=== PATIENT | female | born 1990 ===

== ENCOUNTER 2018-10-30 10:55 | Emergency (ER) | payer BC ==
--- NOTE | 2018-10-30 16:01 | OBHP ---
Datetime: 10/30/2018 15:54 IP Adm Impression: Term, intrauterine ; No Active Labor IP Admit Plan: Observation/Evaluation; Discharge home Admit Comment, IP Provider: pt was mnitored in [place] and no cervical changes noted in over hrs and l ess pains D/C home with instrtuctions and will follow next wk in office Call immediatly if increased pains ROM bleeding or UC Understands and agreed Extremities - PN: Normal Abdomen - PN: Abnormal Back - PN: Normal Breast - PN: Not Done Lungs - PN: Normal Thyroid - PN: Not Done Neurologic - PN: Not Done HEENT - PN: Normal General - PN: Normal FHR - Baseline A Provider: 140/150 Membranes, Provider: Intact Contraction Comments Provider: irreg Comments, ACOG Physical Exam: Abd gravid NT fundus at term NT, ext no calf tenderness Pool Provider: Negative IP Hx Assessment: The History has been Reviewed and is Current EGA AdmitDate IP: 39.5 Vital Signs Provider: Reviewed IP Chief Complaint: Uterine contractions NICHD Variability Prov Fetus A: Moderate 6-25bpm NICHD Accel Fetus A IP Provider: [id number] NICHD Decel Fetus A IP Provider: None Dilatation, Provider: FT Effacement, Provider: none Station, Provider: h Genitourinary Exam: Normal DTRs - PN: Normal
[2018-10-30 21:05] VITALS: BP 125/78; PULSE 94; TEMP 98.1; O2SAT 98
== END 2018-10-30 16:00 | disposition home or self-care (01) ==
LOC: H.EROB2 10:55
DX: O26.93 Pregnancy related conditions, unspecified, third trimester (principal); R10.2 Pelvic and perineal pain; Z3A.39 39 weeks gestation of pregnancy

== ENCOUNTER 2018-11-05 10:18 | Inpatient (IN) | payer BC ==
[2018-11-05 10:35] VITALS: BMI 35.9
[2018-11-05] MEDS ORDERED: Lactated Ringer's 1,000 ML IV ONE (10:35)
[2018-11-05 11:15] LABS: BASO % 0.3 % (0.0-2.0); EOS # 0.1 K/uL (0.0-0.7); EOS % 1.1 % (0.0-4.0); HEMOGLOBIN 11.9 g/dL (12.0-16.0); LYMPH # 2.5 K/uL (1.0-4.3); LYMPH % 21.7 % (20.0-40.0); MEAN CORPUSCULAR HEMOGLOBIN 29.1 pg (27.0-31.0); MEAN CORPUSCULAR HGB CONC 32.7 g/dL (33.0-37.0); MEAN PLATELET VOLUME 9.4 fl (7.2-11.7); MONO # 0.6 K/uL (0.0-0.8); MONO % 5.3 % (0.0-10.0); NEUT # 8.2 K/uL (1.8-7.0); NEUT % 71.6 % (50.0-75.0); NRBC % 0.1 % (0.0-0.0); RBC 4.1 Mil/uL (3.80-5.20); RED CELL DISTRIBUTION WIDTH 15.7 % (11.5-14.5); WHITE BLOOD COUNT 11.4 K/uL (4.8-10.8)
[2018-11-05] MEDS: Lactated Ringer's 1,000 ML IV SCH (13:09)
[2018-11-05] MEDS ORDERED: Fentanyl/Bupivacaine HCl 250 ML EPI ONE (13:10)
[2018-11-06] MEDS ORDERED: cefOXitin IV 1 gm in Dextrose 1 GM/50 ML BAG IVPB ONE ×2 (10:32→10:37)
[2018-11-06] MEDS ORDERED: Oxytocin 30 UNIT 30 UNITS/500 ML BAG IV ONE (10:33)
[2018-11-06] MEDS ORDERED: OXYTOCIN/0.9 % NS 20 UNIT/1,000 ML BAG IV SCH (10:45)
[2018-11-06] MEDS ORDERED: Morphine 1 mg/ml preservative-free Inj(Duramorph) ONE (10:54)
[2018-11-06] MEDS: Lactated Ringer's 1,000 ML IV SCH (11:48)
[2018-11-06] MEDS ORDERED: Oxycodone/Acetaminophen 5/325 mg Tab PO PRN ×4 (12:08→17:23)
--- NOTE | 2018-11-06 12:10 | OBDS ---
DELIVERY PERSONNEL Delivery Doctor: Carmen Ann MD Batt Packer: Tracee Blake RN Anesthesiologist: DR SMILEY QUINTERO Resident: Dr Llanos OB FELLOW MATERNAL INFORMATION Delivery Anesthesia: Spinal Estimated Blood Loss (ml): 800 Maternal Complications: None Provider Comments: see dictated surgeons note LABOR SUMMARY EDC: 11/01/2018 00:00 No. Babies in Womb: 1 LABOR INFORMATION Reason for Induction: Postterm; Indicated by Testing Cervical Ripening Agents: Cervidil (Annotations: Inserted by Dr. Ann ) Oxytocin: N/A Group B Beta Strep: Negative Antibiotics # of Doses: 0 Antibiotics Time of Last Dose: 0 Steroids Given: None Reason Steroids Not Administered: Not Applicable MEMBRANES Membranes Rupture Method: Spontaneous Rupture of Membranes: 11/06/2018 03:30 Length of Rupture (hrs): 7.98 Amniotic Fluid Color: Clear Amniotic Fluid Amount: Large Amniotic Fluid Odor: Normal STAGES OF LABOR Stage 3 hrs: 0 Stage 3 min: 1 VAGINAL DELIVERY Episiotomy: None Laceration Extension: N/A Laceration Type: None Laceration Repair: Not Applicable Sponge Count Correct: Yes Sharps Count Correct: Yes Count Comment: count correct x3 CSECTION DELIVERY Primary Indication: Nonreassuring Status Secondary Indication: Failed Induction CSection Urgency: Elective CSection Incidence: Primary Labor: Labor Elective: Elective CSection Incision: Lower Uterine Transverse Uterine Closure: Double-layer closure BABY A INFORMATION Infant Delivery Date/Time: 11/06/2018 11:29 Method of Delivery: Born in Route : No : N/A Forceps: N/A Vacuum Extraction: Successful Shoulder Dystocia : No ASSISTED DELIVERY BABY A Catheter Prior to Procedure: Yes Vacuum Number of Pulls: 0 Vacuum Number of PopOffs: 1 SHOULDER DYSTOCIA BABY A Delivery Date/Time: 11/06/2018 11:29 PRESENTATION/POSITION BABY A Presentation: Cephalic Cephalic Presentation: Vertex Breech Presentation: N/A PLACENTA INFORMATION BABY A Placenta Delivery Time : 11/06/2018 11:30 Placenta Method of Delivery: Expressed Placenta Status: Delivered SCORES BABY A Heart Rate 1 min: >100 bpm Resp Effort 1 min: Good Cry Reflex Irritability 1 min: Cough or Sneeze or Pulls Away Muscle Tone 1 min: Active Motion Color 1 min: Body [place], Extremities Blue SCORE 1 MIN: 9 Heart Rate 5 min: >100 bpm Resp Effort 5 min: Good Cry Reflex Irritability 5 min: Cough or Sneeze or Pulls Away Muscle Tone 5 min: Active Motion Color 5 min: Body [place], Extremities Blue SCORE 5 MIN: 9 INFANT INFORMATION BABY A Gestational Age at Delivery: 40.5 Gestational Status: Term Outcome : Liveborn Infant Condition : Stable Sex: Male IDENTIFICATION/MEDS BABY A ID Band Number: [id number] ID Band Location: Left Leg; Left Arm WEIGHT/LENGTH BABY A Infant Birthweight (gms): 3730 Infant Weight (lb): 8 Weight (oz): 4 Length Inches: 20.00 Infant Length cms: 50.8 CORD INFORMATION BABY A No. Cord Vessels: 3 Nuchal Cord : N/A Nuchal Cord Other: 0 True Knot: 0 Cord Blood Taken: Yes Suction: Mouth; Nose
[2018-11-06] MEDS ORDERED: cefOXitin IV 1 gm in Dextrose 1 GM/50 ML BAG IVPB SCH (12:15)
[2018-11-06] MEDS ORDERED: DiphenhydrAMINE 50 mg/ml Inj IVP PRN ×2 (13:31→17:23)
[2018-11-06] MEDS ORDERED: Simethicone 80 mg Chewtab PO SCH (16:00)
[2018-11-06] MEDS ORDERED: cefOXitin Sodium 1 GM in Sodium Chloride 0.9% 100 ML IVPB SCH (19:00)
[2018-11-06] MEDS: cefOXitin IV 1 gm in Dextrose 1 GM/50 ML BAG IVPB SCH (19:07)
[2018-11-06] MEDS: Simethicone 80 mg Chewtab PO SCH (21:53)
[2018-11-07] MEDS: cefOXitin IV 1 gm in Dextrose 1 GM/50 ML BAG IVPB SCH ×2 (01:05→09:15)
[2018-11-07] MEDS: Simethicone 80 mg Chewtab PO SCH ×5 (03:17→21:00)
[2018-11-07 07:16] LABS: HEMOGLOBIN 10.3 g/dL (12.0-16.0); MEAN CELL VOLUME 87.5 fl (81.0-99.0); MEAN CORPUSCULAR HEMOGLOBIN 28.9 pg (27.0-31.0); RBC 3.56 Mil/uL (3.80-5.20); RED CELL DISTRIBUTION WIDTH 15.9 % (11.5-14.5); WHITE BLOOD COUNT 14.3 K/uL (4.8-10.8)
[2018-11-07] MEDS: Multivitamin With Minerals Tab PO SCH (08:10)
[2018-11-07] MEDS ORDERED: Multivitamin With Minerals Tab PO SCH (09:00)
[2018-11-07] MEDS ORDERED: Influenza Vaccine 60 mcg/0.5 mL SYR (4YR UP) IM ONE (12:38)
--- NOTE | 2018-11-07 12:55 | OBPPN ---
Datetime: 11/07/2018 12:50 PP Pain Prov: Within normal limits PP Pain Prov comment: No SOB, chest or leg pains PP Nausea Prov: Denies PP Flatus Prov: Yes PP BM Prov: No PP Nausea Prov comment: voided well PP Breasts Prov: Normal PP Lungs Prov: Normal PP Abdomen/Uterus Prov: Abnormal PP Lochia Prov: Normal PP Vulva/Perineum Prov: Normal PP CVA Tenderness Prov: Normal PP Extremities Prov: Normal PP C/S Incision Prov: Normal PP Progress Prov: Normal PP Comments Phys Exam Prov: breast nt, ne, breast feeding; Abd soft ND, fundus firm below the umb In cision clean and dry no suppt or discharge sutures in placel Ext no calf tenderness. PP Impression Prov: Normal progression PP Plan Prov: Continue present management PP Progress Note Prov: OOB and ambulation, increase diet as tolerated. Continue po care. Vital Signs Provider PP: Reviewed
--- NOTE | 2018-11-07 15:04 | OP ---
PROCEDURE DATE: 11/06/2018 PREOPERATIVE DIAGNOSES: 1. at 40 plus weeks gestation. 2. Nonreassuring tracing. 3. Failed induction. POSTOPERATIVE DIAGNOSES: 1. at 40 plus weeks gestation. 2. Nonreassuring tracing. 3. Failed induction. PROCEDURE PERFORMED: Primary low transverse segment section. SURGEON: Sameer Ann MD MECHANICAL OPERATOR: Harris Llanos MD TYPE OF ANESTHESIA: Spinal. ANESTHESIA ADMINISTERED BY: Severiano Saucedo MD ESTIMATED BLOOD LOSS: 800 mL. DRAINS USED: None. REPLACEMENT USED: None. FINDINGS: 1. Delivered living boy baby, baby appears large for gestational age. Baby cried spontaneously. Pediatrist in attendance. score of 9 and 9. 2. Amniotic fluid clear. 3. Placenta complete and intact. 4. Both tubes and ovaries appeared grossly within normal limits to inspection bilaterally. DESCRIPTION OF PROCEDURE: The patient was taken to the operating room and placed on the operating table in a supine position. Following the induction of spinal anesthesia, the Rubio catheter was inserted into the bladder and was draining clear fluid. Venodyne boots were applied to both legs and the abdomen was then draped and prepped in a usual sterile manner. Anesthesia tested and found to be well secured and a Pfannenstiel incision was then made using sharp dissection 2 fingerbreadths above the symphysis pubis. The incision was then extended down to subcutaneous tissue also using sharp dissection. At this time, we then proceeded to obtain hemostasis by means of electrocoagulation. The fascia was then identified, was then entered in the midline. Incision of the fascia was then extended laterally on each direction. Following this, the rectus muscle was then identified, was then slit in the midline exposing the peritoneum. Peritoneal layer was then picked up using 2 Claudia clamps, retracted superiorly and then entered using sharp dissection. Incision of the peritoneum was then extended superiorly and inferiorly under direct visualization. At this time, we then proceeded to identify the bladder, which was then retracted inferiorly using a Matthews retractor. The low transverse segment of the uterus was then identified, was then entered using sharp dissection. Using blunt dissection, a bladder flap was then created and retracted inferiorly using the same Matthews retractor. Following this, we then proceeded to make an incision in a low transverse segment of the uterus. Upon entering the uterine cavity, clear fluid noted to be present. The incision was then extended laterally in each direction using bandage scissors. Using amnioscopy procedure, a living baby boy was then delivered. The baby appears term, but large for gestational age. The baby cried spontaneously. It was aspirated using bulb suction, the umbilicus was then doubly clamped and cut, and the baby handled to the pediatric personnel who was standing by. Samples of cord blood were then obtained and the placenta was then delivered complete and intact. Edges of the uterine incision were then secured using multiple T-clamps. The uterus had been exteriorized to provide better visualization. The uterine cavity was then thoroughly cleaned using moist lap pad. The uterus was massaged and contracted well. The uterine incision was then approximated using 0 Vicryl suture in a continuous interlocking manner. At this time, we then proceeded to place a second layer also using 0 Vicryl suture in a continuous manner. Hemostasis checked and found to be well secured. Following this, the bladder flap was then approximated using a 2-0 Vicryl in a continuous manner. Following this, all operative areas checked, hemostatically secured. Free amniotic fluid and blood were evacuated from the pelvic cavity The pelvic cavity was then irrigated using saline solution and the uterus was then allowed to retract back into its original position. At this time, all operative areas checked, hemostatically secured. Both tubes and ovaries appeared grossly within normal limits to inspection bilaterally. The peritoneum was then closed using 0 Vicryl suture in a continuous manner. Rectus muscle was then approximated in the midline using interrupted 0 Vicryl suture. Fascia was then identified and was then approximated using 0 Vicryl suture in a continuous manner. Fascia was then checked and found to be free of defect. Subcutaneous tissue was then irrigated using saline solution and approximated using several interrupted 2-0 plain sutures. Skin was then approximated using a 3-0 Prolene in a subcuticular fashion. Steri-Strips were then applied. Clear fluid noted to be present in the Rubio bag at this time. The patient tolerated the procedure well. There were no complications. Sponge, instrument, and needle count correct x3. The patient now was then transferred to the recovery room in satisfactory condition. Sameer Ann MD
[2018-11-08] MEDS: Simethicone 80 mg Chewtab PO SCH ×4 (09:04→21:09)
--- NOTE | 2018-11-08 12:15 | OBPPN ---
Datetime: 11/08/2018 12:06 PP Pain Prov: Within normal limits PP Pain Prov comment: no SOB, chest or leg pains PP Nausea Prov: Denies PP Flatus Prov: Yes PP BM Prov: Yes PP Breasts Prov: Normal PP Lungs Prov: Normal PP Abdomen/Uterus Prov: Abnormal PP Lochia Prov: Normal PP Vulva/Perineum Prov: Normal PP CVA Tenderness Prov: Normal PP Extremities Prov: Normal PP C/S Incision Prov: Normal PP Progress Prov: Normal PP Comments Phys Exam Prov: breast NE, NT breast feeding; Abd soft ND depressible fundus firm at umb Incision clean and dry no active bleeding or sign of infection Ext no calf tenderness PP Impression Prov: Normal progression PP Plan Prov: Continue present management PP Progress Note Prov: Continue po care OOB and ambulation IP PP Procedures: None Vital Signs Provider PP: Reviewed
[2018-11-08] MEDS: Multivitamin With Minerals Tab PO SCH (14:43)
[2018-11-09] MEDS: Multivitamin With Minerals Tab PO SCH (08:19)
--- NOTE | 2018-11-09 08:37 | OBDCSUM ---
Datetime: 11/09/2018 08:34 Discharged to, Provider: Home Follow up at, Provider: Damaris Bangura Instr Activity: Normal activity; Bedrest; May be up to bathroom; May be up for meals; May Show er Disch Instr Diet: Regular Discharge Instructions, Provider: Routine instructions given Discharge Diagnosis, Provider: Term Delivered Follow up in weeks, Provider: 1week in office Disch Referrals: None Disch Activity Restrictions: No exercising; No lifting; No driving; Minimize walking; Minimize stair -climbing; No sexual activity; Nothing in vagina - [place], tampons, douche Discharge Comment, Provider: eladia home today rto 1week call office if any problems Contraception after Delivery: Undecided
[2018-11-09] MEDS: Simethicone 80 mg Chewtab PO SCH (10:00)
[2018-11-09 16:55] VITALS: BP 123/80; PULSE 96; RESP 20; TEMP 98.4; O2SAT 98
== END 2018-11-09 11:18 | disposition home or self-care (01) | DRG 788 ==
LOC: UNDOADMIN 10:18 → H.L&D 10:18 → H.OB/GYN 11-06 16:52
PROVIDERS: ADMIT Specialist; ATTEND Specialist
PROC: 10D00Z1 Extraction of Products of Conception, Low, Open Approach (ICD-10-PCS; principal; 2018-11-05)
PROC: 4A1HXCZ Monitoring of Products of Conception, Cardiac Rate, External Approach (ICD-10-PCS; 2018-11-05)
DX: O76 Abnormality in fetal heart rate and rhythm complicating labor and delivery (principal); O99.52 Diseases of the respiratory system complicating childbirth; J45.909 Unspecified asthma, uncomplicated; O48.0 Post-term pregnancy; Z3A.40 40 weeks gestation of pregnancy; Z37.0 Single live birth; O61.9 Failed induction of labor, unspecified; O36.63X0 Maternal care for excessive fetal growth, third trimester, not applicable or unspecified